=== PATIENT | male | born 1990 | race Caucasian/White ===

== ENCOUNTER 2019-06-19 01:34 | Emergency (ER) | payer MEDICAID, OTHER ==
[~2019-06-19] VITALS: Ht 182.9 cm; Wt 79.4 kg
[2019-06-19 01:51] VITALS: BP 141/87
--- NOTE | 2019-06-19 01:52 | NUR ---
PATIENT CAME TO ER BED 9 C/O MID- EPIGASTRIC PAIN FOR "WEEKS". PATIENT STATES THAT HE HAS BEEN TOLD THAT HE HAS STOMACH ULCER. PATIENT IS NAUSEOUS AND DRY-HEAVING. AAOX4. NO SOB. BREATHING EVENLY AND UNLABORED ON ROOM AIR. CONNECTED TO MONITOR.
--- NOTE | 2019-06-19 01:53 | NUR ---
SEEN AND EXAMINED BY
[2019-06-19] MEDS ORDERED: LIDOCAINE VISCOUS 2% UD 15 ML UDC ONE (01:58)
[2019-06-19] MEDS ORDERED: MAG HYDROX/AL HYDROX/SIMETH 30 ML UDC ONE (01:58)
[2019-06-19] MEDS ORDERED: ONDANSETRON 4 MG TAB.RAPDIS ONE (01:58)
[2019-06-19] MEDS ORDERED: MAG HYDROX/AL HYDROX/SIMETH 30 ML UDC PO ONE (02:00)
[2019-06-19] MEDS ORDERED: ONDANSETRON 4 MG TAB.RAPDIS SL ONE (02:00)
[2019-06-19] MEDS ORDERED: LIDOCAINE VISCOUS 2% UD 15 ML UDC MM ONE (02:00)
--- NOTE | 2019-06-19 02:31 | NUR ---
Patient discharged to home in stable condition. Written and verbal after care instructions given. Patient verbalizes understanding of instruction.
== END 2019-06-19 02:32 | disposition home or self-care (01) ==
LOC: ER 01:41
DX: K29.70 Gastritis, unspecified, without bleeding (principal); R11.0 Nausea
CPT/HCPCS: 99284; Q0162